=== PATIENT | female | born 1960 | race Caucasian/White ===

== ENCOUNTER → 2016-08-17 | Outpatient (CLI) | payer OTHER ==
[~2016-08-17] VITALS: Ht 170.2 cm; Wt 57.2 kg
[~2016-08-17] MED LIST: CRESTOR20 MG PO; ELIQUIS5 MG PO; LISINOPRIL10 MG PO; METFORMIN HCL1000 M1 PO; ZANTAC 150 MG150 MG PO; [UNRECOGNIZED DRUG - OTHER] PO
[2016-08-17 09:24] LABS: HEMOGLOBIN 7.6 gm/dl (12.3-15.3)
== END ==
LOC: OPSV 08:30
PROVIDERS: Internal Medicine Hematology & Oncology
DX: C92.10 Chronic myeloid leukemia, BCR/ABL-positive, not having achieved remission (principal); D64.9 Anemia, unspecified; D72.829 Elevated white blood cell count, unspecified; Z79.899 Other long term (current) drug therapy
CPT/HCPCS: 36415; 36430; 82728; 83540; 83550; 85014; 85018; 86850; 86900; 86901; 86920; 96374; J1940; J7050; P9016; Q0163

== ENCOUNTER → 2020-05-31 | Outpatient (CLI) | payer MEDICARE ==
[~2020-05-31] MED LIST changes: +ALDACTONE25 MG PO; +HYDRALAZINE HCL10 MG PO; +LASIX20 MG PO; +LOPRESSOR 25 MG25 MG PO; +LOPRESSOR50 MG PO; +PRINIVIL20 MG PO
== END ==
LOC: DTC 09:20
DX: E11.65 Type 2 diabetes mellitus with hyperglycemia (principal); Z71.3 Dietary counseling and surveillance
CPT/HCPCS: G0108

== ENCOUNTER → 2021-01-04 | Outpatient (CLI) | payer MEDICARE | LOC: RT 10:08 | DX: C92.10 Chronic myeloid leukemia, BCR/ABL-positive, not having achieved remission (principal); D50.9 Iron deficiency anemia, unspecified; Z79.899 Other long term (current) drug therapy; R94.31 Abnormal electrocardiogram [ECG] [EKG] | CPT/HCPCS: 93005 ==

== ENCOUNTER 2021-01-18 00:31 | Inpatient (IN) | payer MEDICARE ==
[~2021-01-18] VITALS: Ht 170.2 cm; Wt 54.4 kg
[2021-01-18 01:51] LABS: HEMOGLOBIN 17.7 gm/dl (12.3-15.3); RED BLOOD COUNT 5.83 M/UL (4.00-5.10); WHITE BLOOD COUNT 13.2 K/UL (4.5-11.0)
[2021-01-18 02:27] LABS: BUN/CREATININE RATIO 37 (0-10)
[2021-01-18 09:23] LABS: HEMOGLOBIN 16.3 gm/dl (12.3-15.3); RED BLOOD COUNT 5.39 M/UL (4.00-5.10); WHITE BLOOD COUNT 11.4 K/UL (4.5-11.0)
[2021-01-18] MEDS ORDERED: LISINOPRIL40 MG PO (09:54)
[2021-01-18] MEDS ORDERED: ATORVASTATIN CA40 MG PO (09:54)
[2021-01-18] MEDS ORDERED: JARDIANCE10 MG PO (09:54)
[2021-01-18] MEDS ORDERED: CLOPIDOGREL75 MG PO (09:55)
[2021-01-18] MEDS ORDERED: PLETAL 100 MG100 MG PO (09:55)
[2021-01-18] MEDS ORDERED: ASPIRIN EC81 MG PO (09:59)
[2021-01-19 07:00] LABS: HEMOGLOBIN 15.5 gm/dl (12.3-15.3); RED BLOOD COUNT 5.23 M/UL (4.00-5.10)
[2021-01-19 08:08] LABS: BUN/CREATININE RATIO 18 (0-10)
== END 2021-01-19 14:50 | disposition home or self-care (01) | DRG 438 ==
LOC: ER1 00:31 → CDU 04:45 → MED SURG 4 04:45
PROVIDERS: Family Medicine; Internal Medicine; ADMIT Internal Medicine
DX: K85.90 Acute pancreatitis without necrosis or infection, unspecified (principal); J96.01 Acute respiratory failure with hypoxia; E44.1 Mild protein-calorie malnutrition; Z68.1 Body mass index [BMI] 19.9 or less, adult; C92.11 Chronic myeloid leukemia, BCR/ABL-positive, in remission; Z20.822 Contact with and (suspected) exposure to COVID-19; I73.9 Peripheral vascular disease, unspecified; E87.6 Hypokalemia; E11.51 Type 2 diabetes mellitus with diabetic peripheral angiopathy without gangrene; R91.1 Solitary pulmonary nodule; I25.10 Atherosclerotic heart disease of native coronary artery without angina pectoris; J44.9 Chronic obstructive pulmonary disease, unspecified; E11.65 Type 2 diabetes mellitus with hyperglycemia; F17.200 Nicotine dependence, unspecified, uncomplicated; Z90.49 Acquired absence of other specified parts of digestive tract; Z95.828 Presence of other vascular implants and grafts; Z79.01 Long term (current) use of anticoagulants; Z79.84 Long term (current) use of oral hypoglycemic drugs
CPT/HCPCS: 36415; 36600; 71045; 80053; 82550; 82553; 82803; 82962; 83605; 83690; 83874; 84478; 84484; 85025; 85027; 94760; 96374; 99285; C9113; J2270; J2405; J7120; Q9967; U0002